=== PATIENT | male | born 1940 | race Caucasian/White ===

== ENCOUNTER 2019-04-27 10:50 | Day surgery (SDC) | payer MEDICARE, BC ==
[~2019-04-27] VITALS: Ht 190.5 cm; Wt 97.9 kg
[2019-04-27] MEDS ORDERED: fentaNYL/PF 50MCG/1 ML 2ML syringe IV ONE (11:30)
[2019-04-27] MEDS ORDERED: normal saline 1000ml 1,000 ML IV SCH (11:30)
[2019-04-27] MEDS ORDERED: MIDAZolam 5mg/ml 2ml vial IV ONE (11:30)
[2019-04-27] MEDS ORDERED: COU1T PO (11:48)
[2019-04-27] MEDS ORDERED: COU2.5T PO (11:48)
[2019-04-27] MEDS ORDERED: FLEC100T2 PO (11:48)
[2019-04-27] MEDS ORDERED: ATRNS (11:48)
[2019-04-27] MEDS ORDERED: BISO1TAB PO (11:48)
[2019-04-27] MEDS ORDERED: TADA2.5T2 PO (11:48)
[2019-04-27] MEDS ORDERED: ATOR20TA PO (11:48)
[2019-04-27] MEDS ORDERED: TEST75GE TOP (11:48)
[2019-04-27 11:50] VITALS: BP 134/84
[2019-04-27 12:26] LABS: BASOPHILS % (AUTO) 0.7 % (0-1); EOSINOPHILS # (AUTO) 0.1 X10'3 (0-0.9); EOSINOPHILS % (AUTO) 2.6 % (0-6); HEMATOCRIT 42.5 % (42.0-52.0); HEMOGLOBIN 14.2 g/dl (14.0-17.9); LYMPHOCYTES # (AUTO) 0.8 X10'3 (1.1-4.8); LYMPHOCYTES % (AUTO) 14.4 % (21-51); MEAN CORPUSCULAR HEMOGLOBIN 30.5 PG (27.0-31.0); MEAN CORPUSCULAR HGB CONC 33.5 g/dL (33.0-36.5); MEAN CORPUSCULAR VOLUME 91.1 FL (78-98); MEAN PLATELET VOLUME 7.8 FL (7.4-10.4); MONOCYTES # (AUTO) 0.6 X10'3 (0-0.9); MONOCYTES % (AUTO) 11.8 % (2-12); NEUTROPHILS # (AUTO) 3.9 X10'3 (1.8-7.7); NEUTROPHILS % (AUTO) 70.5 % (42-75); PLATELET COUNT 134 X10'3 (140-440); RED BLOOD COUNT 4.67 X10'6 (4.70-6.10); RED CELL DISTRIBUTION WIDTH 14.6 % (11.5-14.5); WHITE BLOOD COUNT 5.5 X10'3 (4.5-11.0)
[2019-04-27 12:34] LABS: ALBUMIN 3.7 G/DL (3.4-5.0); ANION GAP 8 (8-16); BLOOD UREA NITROGEN 15 MG/DL (7-18); BUN/CREATININE RATIO 10.5 (5.4-32.0); CALCIUM 8.6 MG/DL (8.5-10.1); CHLORIDE 105 MMOL/L (99-107); CREATININE 1.43 MG/DL (0.60-1.10); GLUCOSE 87 MG/DL (70-104); MAGNESIUM 1.8 MG/DL (1.5-2.4); POTASSIUM 4.1 MMOL/L (3.5-5.1); SODIUM 141 MMOL/L (135-145); TOTAL CARBON DIOXIDE 28.4 MMOL/L (24-32); eGFR 48 ML/MIN
== END 2019-04-27 12:45 | disposition home or self-care (01) ==
LOC: SSTAY O 10:50
PROVIDERS: ATTEND Internal Medicine Cardiovascular Disease
DX: I48.4 Atypical atrial flutter (principal); Z53.8 Procedure and treatment not carried out for other reasons; I10 Essential (primary) hypertension; N40.0 Benign prostatic hyperplasia without lower urinary tract symptoms; I48.0 Paroxysmal atrial fibrillation; Z79.899 Other long term (current) drug therapy; Z88.8 Allergy status to other drugs, medicaments and biological substances; Z79.01 Long term (current) use of anticoagulants; Z95.0 Presence of cardiac pacemaker; Z95.3 Presence of xenogenic heart valve
CPT/HCPCS: 36415; 80048; 83735; 85025; 85610; 93005; J2250; J3010; J7030

== ENCOUNTER 2019-06-15 07:40 | Day surgery (SDC) | payer MEDICARE, BC ==
[2019-06-15] VITALS (8 sets, daily range): BP systolic 92–130; BP diastolic 50–87
[~2019-06-15] VITALS: Ht 190.5 cm; Wt 96.8 kg
[~2019-06-15 07:40] MED LIST: ATOR20TA PO; ATRNS; BISO1TAB PO; COU1T PO; COU2.5T PO; FLEC100T2 PO; TADA2.5T2 PO; TEST75GE TOP
[2019-06-15] MEDS ORDERED: BISO1TAB38 PO (08:18)
[2019-06-15] MEDS ORDERED: UMEC1DIS INH (08:18)
[2019-06-15 08:51] LABS: BASOPHILS # (AUTO) 0.1 X10'3 (0-0.2); BASOPHILS % (AUTO) 0.8 % (0-1); EOSINOPHILS # (AUTO) 0.1 X10'3 (0-0.9); EOSINOPHILS % (AUTO) 1.9 % (0-6); HEMATOCRIT 44.3 % (42.0-52.0); HEMOGLOBIN 14.9 g/dl (14.0-17.9); LYMPHOCYTES # (AUTO) 0.9 X10'3 (1.1-4.8); LYMPHOCYTES % (AUTO) 14.1 % (21-51); MEAN CORPUSCULAR HEMOGLOBIN 29.9 PG (27.0-31.0); MEAN CORPUSCULAR HGB CONC 33.6 g/dL (33.0-36.5); MEAN CORPUSCULAR VOLUME 89.1 FL (78-98); MEAN PLATELET VOLUME 7.6 FL (7.4-10.4); MONOCYTES # (AUTO) 0.6 X10'3 (0-0.9); MONOCYTES % (AUTO) 9.7 % (2-12); NEUTROPHILS # (AUTO) 4.7 X10'3 (1.8-7.7); NEUTROPHILS % (AUTO) 73.5 % (42-75); PLATELET COUNT 197 X10'3 (140-440); RED BLOOD COUNT 4.97 X10'6 (4.70-6.10); RED CELL DISTRIBUTION WIDTH 14.3 % (11.5-14.5); WHITE BLOOD COUNT 6.4 X10'3 (4.5-11.0)
[2019-06-15] MEDS ORDERED: iohexol 350 MG/ML 50ML vial IV ONE (09:01)
[2019-06-15] MEDS ORDERED: LIDOcaine 1% W/epiNEPHrine 1:100,000 20ml vial ONE (09:01)
[2019-06-15] MEDS ORDERED: midazolam 2 mg/2 ml injection ONE ×4 (09:01→10:43)
[2019-06-15] MEDS ORDERED: fentaNYL/PF 50MCG/1 ML 2ML syringe ONE ×2 (09:01→09:04)
[2019-06-15] MEDS ORDERED: vancomycin 1,000mg inj ONE (09:27)
[2019-06-15] MEDS ORDERED: ceFAZolin 1000mg inj ONE (09:27)
[2019-06-15 09:35] LABS: ANION GAP 10 (8-16); BLOOD UREA NITROGEN 16 MG/DL (7-18); BUN/CREATININE RATIO 9.8 (5.4-32.0); CALCIUM 8.7 MG/DL (8.5-10.1); CHLORIDE 105 MMOL/L (99-107); CREATININE 1.63 MG/DL (0.60-1.10); GLUCOSE 96 MG/DL (70-104); MAGNESIUM 1.8 MG/DL (1.5-2.4); POTASSIUM 4.3 MMOL/L (3.5-5.1); SODIUM 143 MMOL/L (135-145); TOTAL CARBON DIOXIDE 28.4 MMOL/L (24-32); eGFR 41 ML/MIN
[2019-06-15] MEDS ORDERED: cefazolin/dext.iso 2gm/100ml 100 ML IV ONE (09:35)
[2019-06-15] MEDS ORDERED: cefazolin/dext.iso 2gm/100ml BAG IV ONE (09:35)
[2019-06-15] MEDS ORDERED: normal saline 1000ml 1,000 ML IV SCH (11:40)
== END 2019-06-15 13:37 | disposition home or self-care (01) ==
LOC: SSTAY O 07:40
PROVIDERS: ATTEND Internal Medicine Cardiovascular Disease
DX: Z45.010 Encounter for checking and testing of cardiac pacemaker pulse generator [battery] (principal); I42.8 Other cardiomyopathies; I48.4 Atypical atrial flutter; I10 Essential (primary) hypertension; I48.91 Unspecified atrial fibrillation; I45.89 Other specified conduction disorders; N40.0 Benign prostatic hyperplasia without lower urinary tract symptoms; Z79.01 Long term (current) use of anticoagulants; Z85.51 Personal history of malignant neoplasm of bladder; Z79.899 Other long term (current) drug therapy; Z88.8 Allergy status to other drugs, medicaments and biological substances; Z95.3 Presence of xenogenic heart valve; Z82.49 Family history of ischemic heart disease and other diseases of the circulatory system
CPT/HCPCS: 33225; 33229; 36415; 71046; 80048; 83735; 85025; 85610; 93005; 99152; 99153; C1769; C1887; C1894; C1900; C2621; J2250; J3010; J3370; Q9967; 33221; 33224; A4565; C1882; J0690

== ENCOUNTER 2019-08-17 07:50 | Day surgery (SDC) | payer MEDICARE, BC ==
[~2019-08-17] VITALS: Ht 190.5 cm; Wt 94.8 kg
[2019-08-17] VITALS (14 sets, daily range): BP systolic 112–147; BP diastolic 73–90
[~2019-08-17 07:50] MED LIST changes: +ATEN-168 PO; -BISO1TAB PO; -FLEC100T2 PO; +LAN0.125T PO; +MAGN400T39 PO; -TADA2.5T2 PO; +TADA20TA54 PO; +TAM50T PO; -TEST75GE TOP; +UMEC1DIS INH
[2019-08-17] MEDS ORDERED: fentaNYL/PF 50MCG/1 ML 2ML syringe IV ONE (08:15)
[2019-08-17] MEDS ORDERED: normal saline 1000ml 1,000 ML IV SCH (08:15)
[2019-08-17] MEDS ORDERED: MIDAZolam 1mg/ml 10ml vial IV ONE (08:15)
[2019-08-17] MEDS ORDERED: BISO1TAB38 PO (09:37)
[2019-08-17] MEDS ORDERED: TESTOSTERONE CREAM TOP (09:37)
[2019-08-17] MEDS ORDERED: VITAMIN D3 PO (09:37)
[2019-08-17] MEDS ORDERED: TADA20TA PO (09:37)
== END 2019-08-17 11:45 | disposition home or self-care (01) ==
LOC: SSTAY O 07:50 → MED 3N 07:51 → SSTAY O 11:45
PROVIDERS: ATTEND Internal Medicine Cardiovascular Disease
DX: I48.19 Other persistent atrial fibrillation (principal)
CPT/HCPCS: 92960; 93005; G0378

== ENCOUNTER 2019-09-02 15:15 | Emergency (ER) | payer MEDICARE, BC ==
[~2019-09-02] VITALS: Ht 190.5 cm; Wt 95.5 kg
[~2019-09-02 15:15] MED LIST changes: -ATEN-168 PO; +BISO1TAB38 PO; -LAN0.125T PO; +TADA20TA PO; +TESTOSTERONE CREAM TOP; +VITAMIN D3 PO
[2019-09-02 15:50] LABS: BASOPHILS % (AUTO) 0.4 % (0-1); EOSINOPHILS # (AUTO) 0.1 X10'3 (0-0.9); EOSINOPHILS % (AUTO) 2.4 % (0-6); HEMATOCRIT 44.2 % (42.0-52.0); HEMOGLOBIN 14.6 g/dl (14.0-17.9); LYMPHOCYTES # (AUTO) 1.2 X10'3 (1.1-4.8); MEAN CORPUSCULAR HEMOGLOBIN 28.8 PG (27.0-31.0); MEAN CORPUSCULAR HGB CONC 32.9 g/dL (33.0-36.5); MEAN CORPUSCULAR VOLUME 87.6 FL (78-98); MEAN PLATELET VOLUME 7.8 FL (7.4-10.4); MONOCYTES # (AUTO) 0.8 X10'3 (0-0.9); MONOCYTES % (AUTO) 13.2 % (2-12); NEUTROPHILS # (AUTO) 3.7 X10'3 (1.8-7.7); PLATELET COUNT 134 X10'3 (140-440); RED BLOOD COUNT 5.05 X10'6 (4.70-6.10); WHITE BLOOD COUNT 5.8 X10'3 (4.5-11.0)
[2019-09-02 16:02] LABS: ALANINE AMINOTRANSFERASE 32 U/L (12-78); ALBUMIN 3.8 G/DL (3.4-5.0); ALKALINE PHOSPHATASE 77 IU/L (46-116); ANION GAP 7 (8-16); ASPARTATE AMINO TRANSFERASE 44 U/L (10-37); BILIRUBIN,TOTAL 0.8 MG/DL (0.1-1.0); BLOOD UREA NITROGEN 17 MG/DL (7-18); BUN/CREATININE RATIO 9.7 (5.4-32.0); CALCIUM 8.9 MG/DL (8.5-10.1); CHLORIDE 103 MMOL/L (99-107); CREATININE 1.76 MG/DL (0.60-1.10); GLUCOSE 116 MG/DL (70-104); POTASSIUM 4.1 MMOL/L (3.5-5.1); SODIUM 139 MMOL/L (135-145); TOTAL CARBON DIOXIDE 28.7 MMOL/L (24-32); TOTAL PROTEIN 7.7 G/DL (6.4-8.2); eGFR 38 ML/MIN
[2019-09-02 16:10] LABS: PHOSPHORUS 3.6 MG/DL (2.3-4.5)
[2019-09-02] MEDS ORDERED: furosemide 20MG tablet PO ONE (16:55)
[2019-09-02] MEDS ORDERED: FURO-150 PO (17:00)
[2019-09-02 17:20] VITALS: BP 142/98
== END 2019-09-02 17:21 | disposition home or self-care (01) ==
LOC: ER 15:16
DX: I50.9 Heart failure, unspecified (principal); I25.10 Atherosclerotic heart disease of native coronary artery without angina pectoris; Z95.0 Presence of cardiac pacemaker; Z79.899 Other long term (current) drug therapy
CPT/HCPCS: 36415; 71045; 80053; 80162; 83735; 83880; 84100; 84484; 85025; 93005; 99285

== ENCOUNTER 2019-09-21 08:02 | Day surgery (SDC) | payer MEDICARE, BC ==
[~2019-09-21] VITALS: Ht 190.5 cm; Wt 94.4 kg
[2019-09-21] VITALS (8 sets, daily range): BP systolic 106–137; BP diastolic 65–82
[~2019-09-21 08:02] MED LIST changes: -ATOR20TA PO; -ATRNS; -BISO1TAB38 PO; -COU1T PO; -COU2.5T PO; +FURO-150 PO; -MAGN400T39 PO; -TADA20TA PO; -TADA20TA54 PO; -TAM50T PO; -TESTOSTERONE CREAM TOP; -UMEC1DIS INH; -VITAMIN D3 PO
[2019-09-21] MEDS ORDERED: normal saline 1,000 ML IV SCH (08:30)
[2019-09-21] MEDS ORDERED: diphenhydrAMINE 25mg capsule PO PRN (08:30)
[2019-09-21] MEDS ORDERED: iohexol 350MG/ML 100ml bottle IV ONE (08:41)
[2019-09-21] MEDS ORDERED: midazolam 2 mg/2 ml injection ONE ×3 (08:41→09:50)
[2019-09-21] MEDS ORDERED: LIDOcaine 1% (10mg/ml)w/preservative injection 20ml MDV ONE (08:41)
[2019-09-21] MEDS ORDERED: iohexol 350 MG/ML 50ML vial IV ONE (08:41)
[2019-09-21] MEDS ORDERED: fentaNYL/PF 50MCG/1 ML 2ML syringe ONE (08:41)
[2019-09-21] MEDS ORDERED: UMEC1DIS (08:43)
[2019-09-21] MEDS ORDERED: ATOR20TA PO (08:43)
[2019-09-21] MEDS ORDERED: FLEC100T35 PO (08:43)
[2019-09-21] MEDS ORDERED: vitamin d3 PO (08:43)
[2019-09-21] MEDS ORDERED: BISO5TAB PO (08:43)
[2019-09-21] MEDS ORDERED: TADA20TA54 (08:43)
[2019-09-21] MEDS ORDERED: WARF2.5T82 PO (08:43)
[2019-09-21] MEDS ORDERED: testosterone (08:43)
[2019-09-21] MEDS ORDERED: IPRA30SP (08:43)
[2019-09-21 09:10] LABS: BASOPHILS % (AUTO) 0.4 % (0-1); EOSINOPHILS % (AUTO) 0.7 % (0-6); HEMATOCRIT 43.9 % (42.0-52.0); HEMOGLOBIN 14.3 g/dl (14.0-17.9); LYMPHOCYTES # (AUTO) 0.7 X10'3 (1.1-4.8); LYMPHOCYTES % (AUTO) 10.3 % (21-51); MEAN CORPUSCULAR HEMOGLOBIN 28.9 PG (27.0-31.0); MEAN CORPUSCULAR HGB CONC 32.6 g/dL (33.0-36.5); MEAN CORPUSCULAR VOLUME 88.4 FL (78-98); MEAN PLATELET VOLUME 7.6 FL (7.4-10.4); MONOCYTES # (AUTO) 0.6 X10'3 (0-0.9); MONOCYTES % (AUTO) 9.1 % (2-12); NEUTROPHILS # (AUTO) 5.1 X10'3 (1.8-7.7); NEUTROPHILS % (AUTO) 79.5 % (42-75); PLATELET COUNT 147 X10'3 (140-440); RED BLOOD COUNT 4.96 X10'6 (4.70-6.10); RED CELL DISTRIBUTION WIDTH 16.1 % (11.5-14.5); WHITE BLOOD COUNT 6.3 X10'3 (4.5-11.0)
[2019-09-21 09:34] LABS: ALBUMIN 3.9 G/DL (3.4-5.0); ANION GAP 6 (8-16); BLOOD UREA NITROGEN 20 MG/DL (7-18); CALCIUM 8.8 MG/DL (8.5-10.1); CHLORIDE 103 MMOL/L (99-107); CREATININE 1.66 MG/DL (0.60-1.10); GLUCOSE 109 MG/DL (70-104); SODIUM 139 MMOL/L (135-145); TOTAL CARBON DIOXIDE 29.8 MMOL/L (24-32); eGFR 40 ML/MIN
[2019-09-21] MEDS ORDERED: HYDROcodone/acetaminophen 5mg/325mg tablet PO PRN (10:45)
[2019-09-21] MEDS ORDERED: ondansetron/PF 4mg/2ml inj IV PRN (10:45)
[2019-09-21] MEDS ORDERED: acetaminophen 325mg tablet PO PRN (10:50)
[2019-09-21] MEDS ORDERED: proCHLORperazine 10 MG/2 ml inj IV PRN (10:50)
[2019-09-21] MEDS ORDERED: HYDROcodone/acetaminophen 10/325mg tab PO PRN (10:50)
--- NOTE | 2019-09-21 13:08 | NUR ---
Problems reprioritized. Patient report given, questions answered & plan of care reviewed with Enma TELLO.
== END 2019-09-21 13:30 | disposition home or self-care (01) ==
LOC: SSTAY O 08:02 → MED 3N 08:07 → SSTAY O 13:30
PROVIDERS: ATTEND Internal Medicine Cardiovascular Disease
DX: R94.39 Abnormal result of other cardiovascular function study (principal); R53.83 Other fatigue; I25.10 Atherosclerotic heart disease of native coronary artery without angina pectoris; I10 Essential (primary) hypertension; I48.0 Paroxysmal atrial fibrillation; I48.4 Atypical atrial flutter; C64.9 Malignant neoplasm of unspecified kidney, except renal pelvis; N40.0 Benign prostatic hyperplasia without lower urinary tract symptoms; Z85.51 Personal history of malignant neoplasm of bladder; Z79.01 Long term (current) use of anticoagulants; Z98.890 Other specified postprocedural states; Z95.0 Presence of cardiac pacemaker; Z95.4 Presence of other heart-valve replacement; Z82.49 Family history of ischemic heart disease and other diseases of the circulatory system; Z88.8 Allergy status to other drugs, medicaments and biological substances
CPT/HCPCS: 36415; 80048; 83735; 85025; 85610; 93005; 93458; 99152; 99153; C1760; C1769; C1894; J1644; J2001; J2250; J3010; J7030; Q0163; Q9967; A4620

== ENCOUNTER 2022-11-12 07:51 | Day surgery (SDC) | payer MEDICARE, BC ==
[~2022-11-12] VITALS: Ht 190.5 cm; Wt 92.4 kg
[~2022-11-12 07:51] MED LIST changes: +ATOR20TA PO; +BISO5TAB PO; +FLEC100T35 PO; -FURO-150 PO; +IPRA30SP; +TADA20TA70; +UMEC1DIS; +WARF2.5T82 PO; +testosterone; +vitamin d3 PO
[2022-11-12 08:15] VITALS: BP 148/86
[2022-11-12] MEDS ORDERED: normal saline 1000ml 1,000 ML IV SCH (08:15)
[2022-11-12] MEDS ORDERED: MIDAZolam 1mg/ml 10ml vial IV ONE (08:15)
[2022-11-12] MEDS ORDERED: fentaNYL/PF 50MCG/1 ML 2ML syringe IV ONE (08:15)
[2022-11-12] MEDS ORDERED: MAGN64TA10 PO (08:21)
[2022-11-12] MEDS ORDERED: LOSA50TA64 PO (08:21)
[2022-11-12] MEDS ORDERED: FLUT1AER INH (08:21)
[2022-11-12] MEDS ORDERED: ASPI81TA52 PO (08:21)
== END 2022-11-12 09:15 | disposition home or self-care (01) ==
LOC: SSTAY O 07:51
PROVIDERS: ATTEND Internal Medicine Cardiovascular Disease
DX: I48.4 Atypical atrial flutter (principal); Z53.8 Procedure and treatment not carried out for other reasons; I49.8 Other specified cardiac arrhythmias
CPT/HCPCS: 93005; A4620; J7030

== ENCOUNTER 2022-12-17 08:18 | Day surgery (SDC) | payer MEDICARE, BC ==
[~2022-12-17] VITALS: Ht 193 cm; Wt 90.7 kg
[~2022-12-17 08:18] MED LIST changes: +ASPI81TA52 PO; +CHOL500050 PO; -FLEC100T35 PO; +FLUT1AER INH; +LOSA50TA64 PO; +MAGN125C PO; +MIDAZolam 1mg/ml 10ml vial IV ONE; +PROP325C PO; +TEST75GE TOP; -UMEC1DIS; +normal saline 1000ml 1,000 ML IV SCH; -testosterone; -vitamin d3 PO
[2022-12-17] MEDS ORDERED: fentaNYL/PF 50MCG/1 ML 2ML syringe IV ONE (08:35)
[2022-12-17] MEDS ORDERED: MIDAZolam 1mg/ml 10ml vial IV ONE (08:35)
[2022-12-17] MEDS ORDERED: normal saline 1000ml 1,000 ML IV SCH (08:35)
[2022-12-17 08:42] VITALS: BP 136/91; PULSE 65; RESP 16; TEMP 97.7; O2SAT 95
[2022-12-17] MEDS ORDERED: MAGN400C PO (08:53)
--- NOTE | 2022-12-17 10:30 | NUR ---
Dr. Mao in to see pt. pt was evaluated by Cecil Ontiveros rep, pt AV paced with underlying Sinus Rhythm. per Dr. mao pt to resume all home meds. pt discharged in stable condition, all belongings sent home with pt. pt ambulated to private vehicle.
== END 2022-12-17 10:40 | disposition home or self-care (01) ==
LOC: SSTAY O 08:18
PROVIDERS: ATTEND Internal Medicine Cardiovascular Disease
DX: I47.1 Supraventricular tachycardia (principal); Z53.8 Procedure and treatment not carried out for other reasons; I10 Essential (primary) hypertension; E78.00 Pure hypercholesterolemia, unspecified; I48.91 Unspecified atrial fibrillation; N40.0 Benign prostatic hyperplasia without lower urinary tract symptoms; Z85.51 Personal history of malignant neoplasm of bladder; Z79.01 Long term (current) use of anticoagulants; Z95.0 Presence of cardiac pacemaker; Z95.3 Presence of xenogenic heart valve; Z79.899 Other long term (current) drug therapy; Z79.82 Long term (current) use of aspirin; Z88.8 Allergy status to other drugs, medicaments and biological substances; Z98.890 Other specified postprocedural states; Z82.49 Family history of ischemic heart disease and other diseases of the circulatory system
CPT/HCPCS: 93005; A4620; J7030

== ENCOUNTER 2023-01-04 23:43 | Emergency (ER) | payer MEDICARE, BC ==
[~2023-01-04] VITALS: Ht 190.5 cm; Wt 90.9 kg
[~2023-01-04 23:43] MED LIST changes: +MAGN400C PO; -MIDAZolam 1mg/ml 10ml vial IV ONE; -normal saline 1000ml 1,000 ML IV SCH
[2023-01-04 23:58] VITALS: TEMP 97.4
[2023-01-05 00:03] LABS: BASOPHILS % (AUTO) 0.5 % (0-1); EOSINOPHILS # (AUTO) 0.2 X10'3 (0-0.9); EOSINOPHILS % (AUTO) 2.2 % (0-6); HEMATOCRIT 41.8 % (42.0-52.0); LYMPHOCYTES # (AUTO) 1.2 X10'3 (1.1-4.8); LYMPHOCYTES % (AUTO) 13.8 % (21-51); MEAN CORPUSCULAR HEMOGLOBIN 31.2 PG (27.0-31.0); MEAN CORPUSCULAR HGB CONC 33.5 g/dL (33.0-36.5); MEAN PLATELET VOLUME 7.9 FL (7.4-10.4); MONOCYTES % (AUTO) 12.3 % (2-12); NEUTROPHILS % (AUTO) 71.2 % (42-75); PLATELET COUNT 131 X10'3 (140-440); RED BLOOD COUNT 4.49 X10'6 (4.70-6.10); RED CELL DISTRIBUTION WIDTH 15.3 % (11.5-14.5); WHITE BLOOD COUNT 8.4 X10'3 (4.5-11.0)
[2023-01-05 00:16] LABS: ALANINE AMINOTRANSFERASE 56 U/L (12-78); ALBUMIN 3.9 G/DL (3.4-5.0); ALBUMIN/GLOBULIN RATIO 1.2 (1.1-1.5); ALKALINE PHOSPHATASE 80 IU/L (46-116); ANION GAP 8 (8-16); ASPARTATE AMINO TRANSFERASE 29 U/L (10-37); BILIRUBIN,TOTAL 0.6 MG/DL (0.1-1.0); BLOOD UREA NITROGEN 28 MG/DL (7-18); BUN/CREATININE RATIO 11.5 (10.0-20.0); CALCIUM 8.7 MG/DL (8.5-10.1); CHLORIDE 105 MMOL/L (99-107); CREATININE 2.44 MG/DL (0.60-1.10); GLUCOSE 124 MG/DL (70-104); POTASSIUM 4.5 MMOL/L (3.5-5.1); SODIUM 141 MMOL/L (135-145); TOTAL CARBON DIOXIDE 28.2 MMOL/L (24-32); TOTAL PROTEIN 7.1 G/DL (6.4-8.2); eCRCL 28 ML/MIN; eGFR 26 ML/MIN
[2023-01-05 00:24] LABS: PRO BRAIN NATRIURETIC PEPTIDE 801 PG/ML (0-450)
[2023-01-05 02:08] VITALS: BP 135/87; PULSE 64; RESP 14; O2SAT 96
== END 2023-01-05 02:11 | disposition left against medical advice (07) ==
LOC: ER 23:45
DX: R07.89 Other chest pain (principal); Z53.21 Procedure and treatment not carried out due to patient leaving prior to being seen by health care provider
CPT/HCPCS: 36415; 71045; 80053; 83880; 84484; 85025; 93005; 99281

== ENCOUNTER 2023-03-02 09:58 | Inpatient (IN) | payer MEDICARE, BC ==
[2023-03-02] VITALS (7 sets, daily range): BP systolic 107–137; BP diastolic 66–99; PULSE 70–97; RESP 12–18; TEMP 97.2–98.4; O2SAT 95–98
[~2023-03-02] VITALS: Ht 190.5 cm; Wt 92.0 kg
[~2023-03-02 09:58] MED LIST changes: -TADA20TA70; +TADA20TA70 PO
--- NOTE | 2023-03-02 11:14 | NUR ---
PATIENT WAS ADMITTED DIRECTLY TO FLOOR FOR START OF NEW MEDICATION TIKOSON. WE DO NOT CARRY THAT MEDICATION AND ARE CURRENTLY TRYING TO OBTAIN IT FROM [facility]. PATIENT'S VITALS ARE STABLE TELE IS ON, BUT HE IS UNDERSTANDABLY UPSET DUE TO THIS HOSPITAL'S LACK OF PROCURING MEDICATION BEFORE PATIENT WAS ADMITTED. PER TELEPHONE CONVERSATION WITH DR HARDING PATIENT IS TO BE FULL CODE AND 125MCG PO OF TIKOSYN WAS SUPPOSED TO BE STARTED LIANNA. PER TRACTOR DRILL OPERATOR DR HARDING IS AWARE OF THE SITUATION.
[2023-03-02] MEDS ORDERED: CHOL25PO8 PO (11:15)
[2023-03-02] MEDS ORDERED: FLUT1BLS4 IH (11:21)
--- NOTE | 2023-03-02 11:21 | NUR ---
PER PHARMACY MEDICATION IS UNAVAILABLE AND DR HARDING WILL FIND ANOTHER WAY TO TREAT.
[2023-03-02] MEDS ORDERED: pneumococcal 23-VAL P-sac vacc 25 mcg/0.5ml vial IMVAC ONE (11:45)
[2023-03-02 14:32] LABS: INR 2.2 INR; PROTHROMBIN TIME 22.9 SECONDS (9.0-12.0)
[2023-03-02] MEDS ORDERED: DOFETILIDE 250 MCG CAPSULE PO SCH (15:09)
--- NOTE | 2023-03-02 15:10 | NUR ---
CALLED PHARMACY TO BRING UP TIKOSEN THEY SAID THEY WOULD HAVE SOMEONE BRING IT UP
[2023-03-02] MEDS: DOFETILIDE 250 MCG CAPSULE PO SCH (15:43)
[2023-03-02] MEDS ORDERED: CHOL500050 PO (16:51)
--- NOTE | 2023-03-02 18:44 | NUR ---
Problems reprioritized. Patient report given, questions answered & plan of care reviewed with Abad MANCERA patient stable at transfer of care..
[2023-03-02] MEDS: ipratropium 0.06% nasal spray 15ml NS SCH (20:00)
[2023-03-02] MEDS ORDERED: warfarin 2.5mg tablet PO ONE (21:00)
[2023-03-02] MEDS ORDERED: atorvastatin 20mg tablet PO SCH (21:00)
[2023-03-03] VITALS (7 sets, daily range): BP systolic 97–130; BP diastolic 67–83; PULSE 74–93; RESP 17–20; TEMP 97–98.4; O2SAT 96–100
--- NOTE | 2023-03-03 06:40 | NUR ---
Patient in room PCU 3014. I have received report from Abad MANCERA and had the opportunity to ask questions and assume patient care.
[2023-03-03 06:46] LABS: BASOPHILS % (AUTO) 0.5 % (0-1); EOSINOPHILS # (AUTO) 0.3 X10'3 (0-0.9); HEMATOCRIT 41.9 % (42.0-52.0); HEMOGLOBIN 14.2 g/dl (14.0-17.9); LYMPHOCYTES # (AUTO) 0.9 X10'3 (1.1-4.8); LYMPHOCYTES % (AUTO) 18.9 % (21-51); MEAN CORPUSCULAR HEMOGLOBIN 31.9 PG (27.0-31.0); MEAN CORPUSCULAR HGB CONC 33.8 g/dL (33.0-36.5); MEAN CORPUSCULAR VOLUME 94.4 FL (78-98); MEAN PLATELET VOLUME 7.9 FL (7.4-10.4); MONOCYTES # (AUTO) 0.7 X10'3 (0-0.9); MONOCYTES % (AUTO) 13.8 % (2-12); NEUTROPHILS # (AUTO) 2.9 X10'3 (1.8-7.7); NEUTROPHILS % (AUTO) 60.8 % (42-75); PLATELET COUNT 128 X10'3 (140-440); RED BLOOD COUNT 4.44 X10'6 (4.70-6.10); RED CELL DISTRIBUTION WIDTH 13.8 % (11.5-14.5); WHITE BLOOD COUNT 4.8 X10'3 (4.5-11.0)
[2023-03-03 06:49] LABS: INR 2.2 INR; PROTHROMBIN TIME 22.6 SECONDS (9.0-12.0)
[2023-03-03 07:06] LABS: ALBUMIN 3.4 G/DL (3.4-5.0); ANION GAP 6 (8-16); BLOOD UREA NITROGEN 17 MG/DL (7-18); BUN/CREATININE RATIO 9.5 (10.0-20.0); CALCIUM 8.8 MG/DL (8.5-10.1); CHLORIDE 107 MMOL/L (99-107); CHOL/HDL RATIO 3.6 (0.00-4.99); CHOLESTEROL 93 MG/DL (0-200); CREATININE 1.79 MG/DL (0.60-1.10); GLUCOSE 90 MG/DL (70-104); HDL CHOLESTEROL 26 MG/DL (35-60); LDL CHOLESTEROL 58 MG/DL (50-100); POTASSIUM 4.8 MMOL/L (3.5-5.1); SODIUM 139 MMOL/L (135-145); TOTAL CARBON DIOXIDE 25.9 MMOL/L (24-32); TRIGLYCERIDES 76 MG/DL (20-135); eCRCL 39 ML/MIN; eGFR 37 ML/MIN
[2023-03-03] MEDS: DOFETILIDE 250 MCG CAPSULE PO SCH (07:47)
[2023-03-03] MEDS: ipratropium 0.06% nasal spray 15ml NS SCH (07:49)
[2023-03-03] MEDS ORDERED: atenolol 50mg tablet PO SCH (08:00)
[2023-03-03] MEDS ORDERED: aspirin 81mg tab.chew PO SCH (08:00)
[2023-03-03] MEDS ORDERED: losartan 25mg tablet PO SCH (08:00)
[2023-03-03] MEDS ORDERED: magnesium oxide 400mg tablet PO SCH (08:00)
--- NOTE | 2023-03-03 08:00 | NUR ---
Dr. Martin came to see patient and advised me to give patient his Dofetilide now 8am and again at 6pm. Patient maybe able to go home today.
--- NOTE | 2023-03-03 10:14 | NUR ---
Problems reprioritized. Patient report given, questions answered & plan of care reviewed with Wyatt TELLO.
--- NOTE | 2023-03-03 10:32 | NUR ---
Patient in room PCU 3014. I have received report from FIORDALIZA Vail and had the opportunity to ask questions and assume patient care.
--- NOTE | 2023-03-03 13:59 | NUR ---
patient not wanting pneumonia vaccine at this time. states will have later.
--- NOTE | 2023-03-03 17:57 | NUR ---
Per patient Dr. Martin had told him he would take 1800 dose of dofetilide and if no issues then patient would be dc at 1930. No orders for dc written in [facility] and no orders in chart. Called to Dr. Martin [phone] no answer. Left message for Dr. Martin to call back.
[2023-03-03] MEDS ORDERED: DOFETILIDE 250 MCG CAPSULE PO SCH (18:00)
--- NOTE | 2023-03-03 18:23 | NUR ---
Dr. mao called back and stated will be in at 1900.
--- NOTE | 2023-03-03 18:23 | NUR ---
Problems reprioritized. Patient report given, questions answered & plan of care reviewed with ELISHA Rogers.
--- NOTE | 2023-03-03 20:58 | NUR ---
pt was discharged by Dr mao .He left the hospital with and belongings including medication around 2014. Pt verbalized on his way out not being happy, because he did not get his med Dofetilide early today.
[2023-03-03] MEDS ORDERED: warfarin 3mg tablet PO ONE (21:00)
[2023-03-04] MEDS ORDERED: cholecalciferol (vitamin D3) 1,000 unit (25mcg) tablet PO SCH (08:00)
== END 2023-03-03 20:15 | disposition home or self-care (01) | DRG 310 ==
LOC: PCU 3S 09:58
PROVIDERS: ADMIT Internal Medicine Cardiovascular Disease; ATTEND Internal Medicine Cardiovascular Disease
DX: I48.4 Atypical atrial flutter (principal); I48.0 Paroxysmal atrial fibrillation; I10 Essential (primary) hypertension; I49.5 Sick sinus syndrome; Z79.899 Other long term (current) drug therapy; Z95.0 Presence of cardiac pacemaker; Z95.3 Presence of xenogenic heart valve; I42.9 Cardiomyopathy, unspecified
CPT/HCPCS: 36415; 80048; 80061; 83735; 85025; 85610; 87081; 90732; 94760; G0378